=== PATIENT | male | born 1955 | race Caucasian/White ===

== ENCOUNTER 2020-04-17 12:25 | Observation (INO) | payer OTHER ==
[~2020-04-17] VITALS: Ht 180.3 cm; Wt 58.1 kg
[2020-04-17 12:25] VITALS: BP 134/77
--- NOTE | 2020-04-17 12:25 | NUR ---
Patient BIBA BLS, transferred to bed 2. RN evaluating patient at bedside.
[2020-04-17] MEDS ORDERED: fentaNYL citrate 0.05 MG/ML VIAL IVP ONE ×2 (13:40→14:50)
--- NOTE | 2020-04-17 13:51 | NUR ---
CALLED TANK BUILDER HELPER SPOKE TO VERONICA WILSON TO SEE BED 2 UNK AT THIS TIME
--- NOTE | 2020-04-17 14:19 | NUR ---
65 Y/O MALE C/O SEVERE GENERALIZED WEAKNESS AND PAIN, PT STATES "THIS HAS BEEN GOING ON FOREVER" BUT YESTERDAY BECAME WORSE. PT WAS AT [facility] AT [facility] AND CALLED 911 DUE TO SEVERE WEAKNESS. PT STATES HE HAS BEEN HAVING DIARRHEA FOR THE PAST TWO DAYS. DENIES ANY SOB/ FEVER/CHILLS/COUGH. UNABLE TO AMBULATE AT THIS TIME D/T WEAKNESS. BOWEL SOUNDS NORMOACTIVE IN ALL QUADRANTS. ABD SOFT/NON DISTENDED. PMH: CANCER OF BRAIN/ LUNG/ THROAT/ HTN
[2020-04-17] MEDS ORDERED: LOPERAMIDE 2 MG CAP PO ONE (14:55)
--- NOTE | 2020-04-17 15:00 | NUR ---
PT C/O 6/10 PAIN AT THIS TIME. STATES FENTANYL RELIEVED "SOME PAIN BUT NOT ALL PAIN". VSS. WATER PROVIDED AT BEDSIDE. ALL NEEDS MET AT THIS TIME
--- NOTE | 2020-04-17 15:09 | NUR ---
LSAT INSTRUCTOR NOTE: SW MET WITH PATIENT PER REQUEST OF EXHAUST MACHINE OPERATOR. SW PROVIDED HOSPICE RESOURCES AND PROVIDED CONTACT INFORMATION TO NICOLA JERONIMO [facility] [phone]. SW VERIFIED THAT NICOLA REACHED OUT TO PATIENT. PATIENT WAS AGREEABLE AND VERBALIZED APPRECIATION. NO FURTHER NEEDS IDENTIFIED.
[2020-04-17] MEDS ORDERED: MORPHINE SULFATE 4 MG/ML SYR IVP ONE (16:40)
[2020-04-17] MEDS ORDERED: LORA-476 PO (18:52)
[2020-04-17] MEDS ORDERED: AMLO5TAB PO (18:56)
[2020-04-17] MEDS ORDERED: ALBU0.0912 IH (18:56)
[2020-04-17] MEDS ORDERED: TAMS0.4C96 PO (18:56)
[2020-04-17] MEDS ORDERED: AMYL-13 PO (18:56)
[2020-04-17] MEDS ORDERED: NIFE60TE5 PO (18:56)
[2020-04-17] MEDS ORDERED: GLIP5TAB4 PO (18:56)
[2020-04-17] MEDS ORDERED: ACET-5636 PO (18:56)
--- NOTE | 2020-04-17 19:11 | NUR ---
REPORT RECEIVED FROM EPI LAUREN FOR CONTINUITY OF CARE.
[2020-04-17] MEDS ORDERED: MORPHINE SULFATE 2 MG/ML SYR IVP PRN (19:20)
--- NOTE | 2020-04-17 19:50 | NUR ---
PT RESTING IN BED, LOCKED AND IN LOWEST POSITION, HOB ELEVATED , SIDE RAIL X 2 FOR PT SAFETY. VISIBLE RISE AND FALL OF CHEST, RR EVEN AND UNLABORED, VSS.
--- NOTE | 2020-04-17 20:01 | NUR ---
PT AMBULATED TO RESTROOM W/ STEADY GAIT.
--- NOTE | 2020-04-17 20:25 | NUR ---
Patient will be admitted to care of DR. MORALES. Admited to [facility]. Will go to room 105B. Belongings list completed. Report to EPI BAKER.
--- NOTE | 2020-04-17 20:25 | NUR ---
ADMITTED 65, MALE, FROM HOME, RECEIVED ENDORSEMENT FROM EPI CHAMBERLAIN. PATIENT IS AAOX4, AMBULATORY, RESPIRATION EVEN AND UNLABORED, NO SOB, DENIES PAIN, V/S TAKEN, MRSA NARES SWAB DONE, INITIAL ASSESSMENT DONE, ORIENTED TO ROOM, LOW BED AND SAFETY MEASURES IN PLACE, PLAN OF CARE DISCUSSED, CALL LIGHT WITHIN REACH.
[2020-04-17] MEDS: NACL 0.9% 1,000 ML IV SCH (21:15)
[2020-04-17] MEDS: HYDROmorphone PFS 2 MG/ML SYR IVP PRN (21:25)
--- NOTE | 2020-04-17 21:25 | NUR ---
C/O 03/10 GEN BODY PAIN. REPOSITIONED. DILAUDID GIVEN ORDERED, MED EDUCATION PROVIDED.
--- NOTE | 2020-04-17 22:25 | NUR ---
PATIENT IS RESTING AND DENIES PAIN.
--- NOTE | 2020-04-17 22:49 | NUR ---
MRSA NARES ROUTINE SCREENING, ORDER NOTED AND CARRIED OUT.
[2020-04-18] VITALS: BP 127/67
--- NOTE | 2020-04-18 | NUR ---
V/S TAKEN, NO SOB, KEPT COMFORTABLE.
--- NOTE | 2020-04-18 02:28 | NUR ---
PATIENT SLEEPING, RESPIRATION EVEN AND UNLABORED.
[2020-04-18] MEDS: HYDROmorphone PFS 2 MG/ML SYR IVP PRN ×4 (02:47→20:32)
--- NOTE | 2020-04-18 04:15 | NUR ---
MADE ROUNDS, PATIENT IS ASLEEP, NO DISTRESS NOTED, CALL LIGHT WITHIN REACH.
--- NOTE | 2020-04-18 06:24 | NUR ---
PATIENT IS NOT IN ANY DISTRESS, ALL NEEDS ATTENDED, DENIES PAIN, KEPT COMFORTABLE, CALL LIGHT WITHIN REACH.
[2020-04-18 06:28] LABS: BASOPHILS % (AUTO) 0.4 % (0.0-2.0); EOSINOPHILS % (AUTO) 0.4 % (0.0-4.0); HEMATOCRIT 47.5 % (36-52); HEMOGLOBIN 15.6 g/dL (12.0-18.0); LYMPHOCYTES # (AUTO) 1.8 K/uL (2.0-11.5); LYMPHOCYTES % (AUTO) 26.4 % (20.5-51.1); MEAN CORPUSCULAR HEMOGLOBIN 34 pg (27-31); MEAN CORPUSCULAR HGB CONC 33 g/dL (33-37); MEAN CORPUSCULAR VOLUME 102.3 fL (80-94); MONOCYTES # (AUTO) 0.6 K/uL (0.8-1.0); MONOCYTES % (AUTO) 8.5 % (1.7-9.3); NEUTROPHILS # (AUTO) 4.3 K/uL (1.8-7.7); NEUTROPHILS % (AUTO) 64.3 % (42.2-75.2); PLATELET COUNT (AUTO) 170 K/uL (140-450); RED BLOOD CELL COUNT(AUTO) 4.64 MIL/uL (4.20-6.10); RED CELL DISTRIBUTION WIDTH 13.3 % (11.6-13.7); WHITE BLOOD COUNT (AUTO) 6.6 K/uL (4.8-10.8)
[2020-04-18 06:55] LABS: ALBUMIN 3.3 g/dL (3.4-5.0); ANION GAP 10.9 (8-16); CARBON DIOXIDE 30.3 mmol/L (21-32); CREATININE 0.8 mg/dL (0.6-1.3); POTASSIUM 4.2 mmol/L (3.5-5.1); TOTAL BILIRUBIN 0.7 mg/dL (0.0-1.0)
--- NOTE | 2020-04-18 07:10 | NUR ---
RECEIVED PATIENT FROM NIGHT NURSE. PATIENT IS AWAKE, ALERT, ORIENTEDX4. RESP EVEN AND UNLABORED ON ROOM AIR. NO NOTED DISTRESS AT THIS TIME. PLAN OF CARE DISCUSSED WITH PATIENT. PATIENT VERBALIZED UNDERSTANDING. LFA IV ACCESS INTACT AND PATENT. SAFETY MEASURE IN PLACE. CALL LIGHT WITHIN REACH. WILL CONTINUE TO MONITOR.
--- NOTE | 2020-04-18 07:10 | NUR ---
PATIENT IS IN STABLE CONDITION. BEDSIDE ENDORSEMENT GIVEN TO AM SHIFT RN FOR CONTINUITY OF CARE.
[2020-04-18 08:00] VITALS: BP 155/91
--- NOTE | 2020-04-18 08:37 | NUR ---
DISCHARGE PLANNING: RECEIVED A CALL FROM CHARGE NURSE YANA TO FOLLOW UP COVID TEST RESULT FROM [facility]. CONTACTED [facility] AT [phone], ABLE TO SPEAK TO MELIDA. HE STATED HE WILL HAVE SOMEONE CHECK IT BECAUSE HE IS IN THE MIDDLE OF SOMETHING. PROVIDED HIM WITH MY CONTACT INFO AND FAX NUMBER TO SEND THE RESULT ONCE AVAILABLE. Addendum: 04/18/20 at 0917 by Leeanne Lentz RECEIVED RESULTS FROM [facility], NEGATIVE FOR COVID. COPY OF RESULT GIVEN TO CHARGE NURSE. Addendum: 04/18/20 at 1008 by Dorcas Jefferson RECEIVED ORDER TO D/C PATIENT TO [facility]. SPOKE TO NIVIA IN ADMISSIONS AT [facility] [phone] HER EMAIL PRODUCTION SPECIALIST IS REVIEWING THE CLINICALS Addendum: 04/18/20 at 1138 by Dorcas Jefferson CM SPOKE TO PATIENT ABOUT DISCHARGING TO A [facility] FACILITY, HE IS AGREEABLE TO GOING BUT HE PREFERRED GOING TO [facility]. ARMANDO REACHED OUT TO DR. DELGADO HE WOULD LIKE PATIENT TO GO TO [facility] SO HE COULD CONTINUE TO FOLLOW THE PATIENTS TREATMENT. FOLLOWED UP WITH THE PATIENT TO LET HIM KNOW AND PROVIDED HIM A BROCHURE FOR [facility]. HE AGREED TO GOING TO [facility]. FAXED CLINICALS TO CÉSAR AT [facility] WILL FOLLOW UP FOR AUTH FOR SNF AND TRANSPORTATION. Addendum: 04/18/20 at 1207 by Dorcas Jefferson CM DR. DELGADO NOTIFIED US THAT HE IS NOT ABLE TO FOLLOW PATIENT AT [facility] HOWEVER HE DOES HAVE RECOMMENDED DOCTORS THAT CAN FOLLOW THIS PATIENT. I NOTIFIED PATIENT OF THIS AND HE WAS STILL AGREEABLE TO GOING TO [facility]. Addendum: 04/18/20 at 1426 by Dorcas Jefferson CM RECEIVED A CALL FROM CHARO FROM [facility] HE WANTED TO CLARIFY IF PATIENT WILL BE DISCHARGED TODAY. HE PROVIDED ROOM NUMBER [address] HEAD[address] WAITING ON AUTH FROM [facility] AT [facility] Addendum: 04/18/20 at 1621 by Dorcas Jefferson CM [facility] PROVIDED AUTH FOR SNF. FOLLOWED UP WITH CHARO PATIENT CAN D/C TO [facility] TODAY. CONTACTED [facility] [phone]. TRANSPORTATION IS SET UP FOR 6:00 PM. NOTIFIED EPI GOYAL AND [facility]. Addendum: 04/18/20 at 1623 by Dorcas Jefferson CM CHANDAN NAZARIO [phone]. [address] [place] [address] ROOM [facility]
[2020-04-18] MEDS ORDERED: ENOXAPARIN 40 MG/0.4 ML SYR SUBQ SCH (09:00)
--- NOTE | 2020-04-18 09:14 | NUR ---
PATIENT HAS BEEN SCREENED AND CATEGORIZED HIGH NUTRITION RISK. PATIENT WILL BE SEEN WITHIN 1-2 DAYS OF ADMISSION. 04/18/20-04/19/[address]
[2020-04-18] MEDS: NACL 0.9% 1,000 ML IV SCH (09:26)
--- NOTE | 2020-04-18 09:33 | NUR ---
MORNING ROUTINE MEDICATIONS GIVEN ORDERED. PATIENT TOLERATED WELL. DILAUDID GIVEN FOR SEVERE PAIN TO ABD. VITALS WNL. RESP EVEN AND UNLABORED ON ROOM AIR. PATIENT ABLE TO MAKE NEEDS KNOWN AND FOLLOWS COMMANDS. LFA INTACT AND PATENT. CALL LIGHT WITHIN REACH. WILL CONTINUE TO MONITOR.
--- NOTE | 2020-04-18 12:49 | NUR ---
PATIENT SITTING IN BED COMFORTABLE AT THIS TIME. DENIES OF ANY PAIN. PATIENT AMBULATING TO THE BATHROOM WITH STEADY GAIT. RESP EVEN AND UNLABORED ON ROOM AIR. SAFETY MEASURES IN PLACE. CALL LIGHT WITHIN REACH. WILL CONTINUE TO MONITOR.
[2020-04-18] MEDS ORDERED: DEXTROSE 50% 50 ML SYR IVP PRN (13:50)
[2020-04-18] MEDS ORDERED: INSULIN LISPRO SLIDING SCALE 100 UNITS/ML VIAL SUBQ PRN (13:50)
--- NOTE | 2020-04-18 13:54 | NUR ---
04/18/20 RD INITIAL ASSESSMENT COMPLETED PLEASE REFER TO NUTRITION ASSESSMENT UNDER CARE ACTIVITY FOR ESTIMATED NUTRITIONAL NEEDS. 1. RECOMMEND CCHO 75 GM DIET TOLERATED 2. RECOMMEND GLUCERNA TID 3. ENCOURAGED PO INTAKE 4. RD TO FOLLOW-UP 3-5 DAYS, MODERATE RISK CLOVER SHARPE, RD
[2020-04-18 16:00] VITALS: BP 140/83
--- NOTE | 2020-04-18 16:35 | NUR ---
BLOOD GLUCOSE 205. INSULIN PROVIDED PER SLIDING SCALE. RESP EVEN AND UNLABORED. DENIES OF PAIN AT THIS TIME. CALL LIGHT WITHIN REACH. WILL CONTINUE TO MONITOR.
[2020-04-18] MEDS: BLOOD GLUCOSE MONITORING 1 DEV DEV FS SCH ×3 (16:56→20:32)
--- NOTE | 2020-04-18 17:36 | NUR ---
CALL [facility] [phone], AND GAVE REPORT TO NANCY RN WEB SYSTEMS DEVELOPER. PATIENT WILL BE GOING TO ROOM [address] CHRISTINA TORO. [facility] AT 1800
[2020-04-18 17:40] VITALS: BP 140/83
--- NOTE | 2020-04-18 19:26 | NUR ---
[facility] IS BEHIND SCHEDULED. ETA [phone]. PATIENT VERBALIZED UNDERSTANDING. DENIES OF PAIN AT THIS TIME. CIGARETTE AND TELEVISION MAINTENANCE MAN ARE AT NURSING STATION FOR PATIENT. PATIENT IS AWARE. ENDORSED TO ONCOMING NURSE. PATIENT IN STABLE CONDITION.
--- NOTE | 2020-04-18 21:00 | NUR ---
[facility] HERE, IV LINE DISCONTINUED WITH CANNULA INTACT, DISCHARGE INSTRUCTIONS GIVEN BY AM NURSE CHELE GOYAL, PT PREFER TO WALK INSTEAD OF USING THE GURNEY, ESCORTED BY [facility], EHSAN MCGEE NOTIFIED JOHNSON FROM [facility] #[phone] THAT PT IS ON HIS WAY.
== END 2020-04-18 21:00 ==
LOC: MED 12:25 → MTU 19:23
PROVIDERS: ADMIT Internal Medicine; ATTEND Internal Medicine
DX: M79.10 Myalgia, unspecified site (principal); C71.9 Malignant neoplasm of brain, unspecified; C78.02 Secondary malignant neoplasm of left lung; C78.01 Secondary malignant neoplasm of right lung; C79.89 Secondary malignant neoplasm of other specified sites; G89.3 Neoplasm related pain (acute) (chronic); Z87.891 Personal history of nicotine dependence; Z79.899 Other long term (current) drug therapy
CPT/HCPCS: 36415; 80053; 82948; 85025; 87081; 96361; 96372; 96374; 96375; 96376; 97116; 97161; 99291; G0378; J1170; J1650; J2270; J3010; J7030